=== PATIENT | female | born 2000 | race Hispanic/Latino ===

== ENCOUNTER 2019-05-05 22:11 | Emergency (ER) | payer OTHER ==
[~2019-05-05] VITALS: Ht 170.2 cm; Wt 69.5 kg
[2019-05-05 22:12] VITALS: BP 115/65
[2019-05-05] MEDS ORDERED: CARISOPRODOL 350 MG TAB PO ONE (23:00)
[2019-05-05] MEDS ORDERED: KETOROLAC 60 MG/2 ML VIAL (J1885) IM ONE (23:00)
[2019-05-05] MEDS ORDERED: IBUP-1022 PO (23:07)
[2019-05-05] MEDS ORDERED: SOMA350T PO (23:07)
[2019-05-06] MEDS ORDERED: KETO10TAB PO (21:28)
== END 2019-05-05 23:18 | disposition home or self-care (01) ==
LOC: M ED 22:11
DX: S39.012A Strain of muscle, fascia and tendon of lower back, initial encounter (principal); M62.830 Muscle spasm of back; X50.0XXA Overexertion from strenuous movement or load, initial encounter; Y92.89 Other specified places as the place of occurrence of the external cause; Y93.B3 Activity, free weights; Z88.0 Allergy status to penicillin
CPT/HCPCS: 96372; 99283; J1885

== ENCOUNTER 2019-05-06 18:42 | Emergency (ER) | payer OTHER ==
[~2019-05-06] VITALS: Ht 170.2 cm; Wt 71.5 kg
[2019-05-06 18:42] VITALS: BP 135/64
[~2019-05-06 18:42] MED LIST: IBUP-1022 PO; SOMA350T PO
[2019-05-06] MEDS ORDERED: KETO10TAB PO (21:28)
[2019-05-06] MEDS: ACETAMINOPHEN 500 MG TAB PO ONE (21:38)
[2019-05-06] MEDS: KETOROLAC TROMETHAMINE 10 MG TAB PO ONE (21:39)
== END 2019-05-06 21:42 | disposition home or self-care (01) ==
LOC: M ED 18:42
DX: S29.012A Strain of muscle and tendon of back wall of thorax, initial encounter (principal); S39.012A Strain of muscle, fascia and tendon of lower back, initial encounter; X58.XXXA Exposure to other specified factors, initial encounter; Y92.89 Other specified places as the place of occurrence of the external cause; Z88.0 Allergy status to penicillin; F17.210 Nicotine dependence, cigarettes, uncomplicated

== ENCOUNTER 2020-12-14 22:20 | Emergency (ER) | payer OTHER ==
[~2020-12-14] VITALS: Ht 170.2 cm; Wt 71.8 kg
[~2020-12-14 22:20] MED LIST changes: +KETO10TAB PO
[2020-12-14 22:21] VITALS: BP 103/68
[2020-12-14] MEDS ORDERED: IBUP-1114 PO (22:33)
--- NOTE | 2020-12-14 23:12 | REPVR ---
PROCEDURE INFORMATION: Exam: XR Right Ankle Exam date and time: 12/14/2020 10:46 PM Age: 20 years old Clinical indication: Other: Right ankle injury TECHNIQUE: Imaging protocol: XR Right ankle. Views: 3 or more views. COMPARISON: No relevant prior studies available. FINDINGS: Bones/joints: Normal. Soft tissues: Normal. IMPRESSION: Negative right ankle. Electronically signed by: Qasim Finney On 12/14/2020 23:11:58 PM
== END 2020-12-14 23:40 | disposition home or self-care (01) ==
LOC: M ED 22:20
DX: S93.401A Sprain of unspecified ligament of right ankle, initial encounter (principal); W18.40XA Slipping, tripping and stumbling without falling, unspecified, initial encounter; Y92.009 Unspecified place in unspecified non-institutional (private) residence as the place of occurrence of the external cause; Y93.9 Activity, unspecified; Y99.9 Unspecified external cause status; Z79.899 Other long term (current) drug therapy; Z88.0 Allergy status to penicillin

== ENCOUNTER 2021-09-04 10:04 | Emergency (ER) | payer OTHER ==
[~2021-09-04] VITALS: Ht 172.7 cm; Wt 77.7 kg
[~2021-09-04 10:04] MED LIST changes: +IBUP-1114 PO
--- OUTSIDE RECORDS SUMMARY | 2021-09-04 10:10 | CCD ---
Author Author [facility] Organization [facility] Address Unknown Phone Unavailable Care Team Providers Care Barber Tool Sharpener Name Role Phone Schneider, M Cate FAN MAIL CLERK Unavailable Unavailable Schneider, M Cate FAN MAIL CLERK Unavailable Unavailable Schneider, M Cate FAN MAIL CLERK Unavailable Unavailable Schneider, M Cate FAN MAIL CLERK Unavailable Unavailable Schneider, M Cate FAN MAIL CLERK Unavailable Unavailable Schneider, M Cate FAN MAIL CLERK Unavailable Unavailable Schneider, M Cate FAN MAIL CLERK Unavailable Unavailable Schneider, M Cate FAN MAIL CLERK Unavailable Unavailable Schneider, M Cate FAN MAIL CLERK Unavailable Unavailable Schneider, M Cate FAN MAIL CLERK Unavailable Unavailable Re-disclosure Warning The records that you are about to access may contain information from federally-assisted alcohol or drug abuse programs. If such information is present, then the following federally mandated warning applies: This information has been disclosed to you from records protected by federal confidentiality rules (42 CFR part 2). The federal rules prohibit you from making any further disclosure of this information unless further disclosure is expressly permitted by the written consent of the person to whom it pertains or as otherwise permitted by 42 CFR part 2. A general authorization for the release of medical or other information is NOT sufficient for this purpose. The Federal rules restrict any use of the information to criminally investigate or prosecute any alcohol or drug abuse patient.The records that you are about to access may contain highly sensitive health information, the redisclosure of which is protected by Article 27-F of the [facility] Public Health law. If you continue you may have access to information: Regarding HIV / AIDS; Provided by facilities licensed or operated by the [facility] Office of Mental Health; or Provided by the [facility] Office for People With Developmental Disabilities. If such information is present, then the following [facility] mandated warning applies: This information has been disclosed to you from confidential records which are protected by state law. State law prohibits you from making any further disclosure of this information without the specific written consent of the person to whom it pertains, or as otherwise permitted by law. Any unauthorized further disclosure in violation of state law may result in a fine or care home sentence or both. A general authorization for the release of medical or other information is NOT sufficient authorization for further disc losure. Encounters Encounter Providers Location Date Indications Data Source(s ) Outpatient Attender: Cate ARCHIBALD [facility] 1 10/27/2020 09:03:00 AM EST - 08/27/2021 09:04:[address] [facility] Patient discharged. Immunizations Vaccine Date Status Description Data Source(s) COVID-19 VACCINE Moderna 02/18/2021 12:00:00 AM EDT completed [facility] Vaccine Series Complete: YESThis Data wa s Submitted to [facility] Via [facility]. COVID-19 VACCINE Moderna 01/21/2021 12:00:00 AM EDT completed [facility] Vaccine Series Complete: NOThis Data was Submitted to [facility] [employer]. Medications No Information Insurance Providers Payer name Policy type / Coverage type Policy ID Covered democrat ID Covered democrat's relationship to mckeon Policy [employer] Plan Information [facility] [employer] [id number] SP [id number] [facility] [id number] S [id number] [facility] [employer] [id number] SP [id number] Problems, Conditions, and Diagnoses No Information Surgeries/Procedures No Information Results ID Date Data Source [id number] 08/28/2021 10:38:00 AM [facility] Name: BRANDON MORGAN : [birth year] Age/Sex: 21F Ordering Provider: CRISTELA Browning Med Rec #: [id number] Reg Status: [facility] PO Room #: Date of Service: 08/27/21 Report Number: [id number] cc:CRISTELA Browning Send Report To: [id number] XRP/XR Ankle Rt Min. 3 Views Reason for exam: ANKLE PAIN No priors are available for comparison. FINDINGS: Routine views show no fracture or dislocation. The ankle mortise isnormally maintained and the articular surfaces are smooth. The soft tissues areunremarkable. IMPRESSION: NEGATIVE ANKLE. REPORT DICTATED BY CIRO LIVE, REVIEWED AND SIGNED BY DR. CELESTIN. Fluoroscopy time in seconds: Number of Exposures: Time Portable Image Performed: Contrast Agent in ml: Method of Administration: REPORT SIGNATURE ON FILE Reported By: Ciro Celestin MD Electronically signed by: Ciro Celestin MD 08/28/21 1045 Dictation Date/Time: 08/27/21 0943 Transcribed Date/Time: 08/28/21 1038 Shake Sawyer: CEASAR Name Value Range Interpretation Code Description Data Diana rce(s) Supporting Document(s) ID Date Data Source [id number] 06/17/2021 11:25:00 AM EDT [facility] Name Value Range Interpretation Code Description Data Diana rce(s) Supporting Document(s) SARS coronavirus [address] [facility] [place] This lab was ordered by [facility] and reported by [facility]. ID Date Data Source [id number] 11/06/2020 01:51:00 PM EST [facility] Name Value Range Interpretation Code Description Data Diana rce(s) Supporting Document(s) SARS coronavirus [address] [facility] [place] This lab was ordered by [facility] and reported by [facility]. Procedure Social History No Information
--- OUTSIDE RECORDS SUMMARY | 2021-09-04 12:09 | CCD ---
Author Author [facility] Organization [facility] Address Unknown Phone Unavailable Care Team Providers Care Fuel House Attendant Name Role Phone Schneider, M Cate OPERATIONS CONTROLLER Unavailable Unavailable Schneider, M Cate OPERATIONS CONTROLLER Unavailable Unavailable Schneider, M Cate OPERATIONS CONTROLLER Unavailable Unavailable Schneider, M Cate OPERATIONS CONTROLLER Unavailable Unavailable Schneider, M Cate OPERATIONS CONTROLLER Unavailable Unavailable Schneider, M Cate OPERATIONS CONTROLLER Unavailable Unavailable Schneider, M Cate OPERATIONS CONTROLLER Unavailable Unavailable Schneider, M Cate OPERATIONS CONTROLLER Unavailable Unavailable Schneider, M Cate OPERATIONS CONTROLLER Unavailable Unavailable Schneider, M Cate OPERATIONS CONTROLLER Unavailable Unavailable Re-disclosure Warning The records that [...] is protected by Article 27-F of the [facility] Public Health law. If you continue you may have access to information: Regarding HIV / AIDS; Provided by facilities licensed or operated by the [facility] Office of Mental Health; or Provided by the [facility] Office for People With Developmental Disabilities. If such information is present, then the following [facility] mandated warning applies: This information has [...] law may result in a fine or [place] [facility] sentence or both. A general authorization for the release of medical or other information is NOT sufficient authorization for further disc losure. Encounters Encounter Providers Location Date Indications Data Source(s ) Outpatient Attender: Cate ARCHIBALD [facility]CPS[facility] 1 10/27/2020 09:03:00 AM EST - 08/27/2021 09:04:00 AM [facility] Patient discharged. Immunizations Vaccine Date Status Description Data Source(s) COVID-19 VACCINE Moderna 02/18/2021 12:00:00 AM EDT completed [facility] Vaccine Series Complete: YESThis Data wa s Submitted to [facility] Via [employer]. COVID-19 VACCINE Moderna 01/21/2021 12:00:00 AM EDT completed [facility] Vaccine Series Complete: NOThis Data was Submitted to [facility] Via [employer]. Medications No Information Insurance Providers Payer name Policy type / Coverage type Policy ID Covered constitution party ID Covered constitution party's relationship to mckeon Policy [employer] Plan Information [facility] [employer]IVE D[employer] [id number] SP [id number] [facility] [id number] S [id number] [facility] [employer] D[employer] [id number] SP [id number] Problems, Conditions, and Diagnoses No Information Surgeries/Procedures No Information Results ID Date Data Source [id number] 08/28/2021 10:38:00 AM [facility] Hospital Name: BRANDON MORGAN : [birth year] Age/Sex: 21F Ordering Provider: CRISTELA Browning Med Rec #: [id number] Reg Status: [facility] Room #: Date of Service: 08/27/21 Report Number: [id number] cc:CRISTELA Browning Send Report To: [id number] XRP/XR Ankle Rt Min. 3 Views Reason [...] REPORT SIGNATURE ON FILE Reported By: Ciro Ceelstin MD Electronically signed by: Ciro Celestin MD 08/28/21 1045 Dictation Date/Time: 08/27/21 0943 Transcribed Date/Time: 08/28/21 1038 Software Reliability Engineer: CEASAR Name Value Range Interpretation Code Description Data Diana rce(s) Supporting Document(s) ID Date Data Source [id number] 06/17/2021 11:25:00 AM EDT [facility] Name Value Range Interpretation Code Description Data Diana rce(s) Supporting Document(s) SARS coronavirus 2 RNA Not Detected [facility] [place] This lab was ordered by [facility] and reported by [facility]. ID Date Data Source [id number] 11/06/2020 01:51:00 PM EST [facility] Name Value Range Interpretation Code Description Data Diana rce(s) Supporting Document(s) SARS coronavirus 2 RNA Not Detected [facility] [place] This lab was ordered by [facility] and reported by [facility]. Procedure Social History No Information
[2021-09-04] MEDS ORDERED: LIDOCAINE 5% (LIDODERM) PATCH TD ONE (13:15)
[2021-09-04] MEDS ORDERED: KETOROLAC 30 MG/ML 1ML VIAL IM ONE (13:15)
[2021-09-04] MEDS ORDERED: methocarbamoL 500 MG TAB PO ONE (13:15)
[2021-09-04 14:39] VITALS: BP 128/75
[2021-09-05] MEDS ORDERED: **NOTE PATIENT COMMENT** MISC XX ONE (01:00)
== END 2021-09-04 14:40 | disposition home or self-care (01) ==
LOC: M ED 10:04
DX: S39.012A Strain of muscle, fascia and tendon of lower back, initial encounter (principal); X50.1XXA Overexertion from prolonged static or awkward postures, initial encounter; Y92.89 Other specified places as the place of occurrence of the external cause; Y93.89 Activity, other specified; Y99.1 Military activity; Z88.0 Allergy status to penicillin
CPT/HCPCS: 96372; 99283; J1885